=== PATIENT | female | born 1975 | race Caucasian/White ===

== ENCOUNTER 2018-06-26 20:45 | Emergency (ER) | payer BC, OTHER ==
--- NOTE | 2018-06-26 21:10 | ER Document Report ---
ED General - General Chief Complaint: Dizziness Stated Complaint: DIZZINESS Time Seen by Provider: 06/26/18 20:57 Notes: Patient is a 43-year-old female that comes emergency department for chief complaint of feeling generally weak, tired, and prior to arrival she states she had an episode where she felt like she was having palpitations, she became lightheaded, her vision became slightly blurry. She states she did not pass out. She denies getting a headache, having chest pain, having shortness of breath, and denies nausea or vomiting. She denies fever or chills. She is visiting her daughter, she is from out of town. Past medical history includes pacemaker (for history of Mobitz type II block, bradycardia and tachycardia), on diltiazem, also is medicated for hypothyroidism, recently had normal thyroid levels reportedly. At bedside she denies any current complaints other than generally feeling somewhat weak and tired. TRAVEL OUTSIDE OF THE [place] IN LAST 30 DAYS: No - Related Data Allergies/Adverse Reactions: No Known Allergies Allergy (Verified 06/26/18 21:47) Past Medical History - General Information source: Patient - Social History Smoking Status: Never Smoker Frequency of alcohol use: None Drug Abuse: None Lives with: Family Family History: Reviewed & Not Pertinent - Past Medical History Cardiac Medical History: Reports: Other - Pacemaker placement in [place] Endocrine Medical History: Reports: Hx Hypothyroidism Past Surgical History: Reports: Other - Pacemaker placement - Immunizations Immunizations up to date: Yes Hx Diphtheria, Pertussis, Tetanus Vaccination: Yes Review of Systems - Review of Systems Constitutional: No symptoms reported EENT: No symptoms reported Cardiovascular: See HPI Respiratory: No symptoms reported Gastrointestinal: No symptoms reported Genitourinary: No symptoms reported Female Genitourinary: No symptoms reported Musculoskeletal: No symptoms reported Skin: No symptoms reported Hematologic/Lymphatic: No symptoms reported Neurological/Psychological: See HPI Physical Exam - Vital signs Vitals: Temp Pulse Resp BP Pulse Ox 98.1 F 80 20 141/88 H 98 06/26/18 20:51 06/26/18 20:51 06/26/18 20:51 06/26/18 20:51 06/26/18 20:51 - Notes Notes: GENERAL: Alert, interacts well. No acute distress. HEAD: Normocephalic, atraumatic. EYES: Pupils equal, round, and reactive to light. Extraocular movements intact. ENT: Oral mucosa moist, tongue midline. Oropharynx unremarkable. Airway patent. Nares patent, no nasal septal hematoma, TM's intact. NECK: Full range of motion. Supple. Trachea midline. LUNGS: Clear to auscultation bilaterally, no wheezes, rales, or rhonchi. No respiratory distress. HEART: Regular rate and rhythm. No murmur ABDOMEN: Soft, non-tender. Non-distended. Bowel sounds present in all 4 q uadrants. GENITOURINARY: Deferred EXTREMITIES: Moves all 4 extremities spontaneously. No edema, normal radial and dorsalis pedis pulses bilaterally. No cyanosis. BACK: no cervical, thoracic, lumbar midline tenderness. No saddle anesthesia, normal distal neurovascular exam. NEUROLOGICAL: Alert and oriented x3. Normal speech. [cranial nerves II through XII grossly intact]. PSYCH: Normal affect, normal mood. SKIN: Warm, dry, normal turgor. No rashes or lesions noted. Course - Re-evaluation Re-evalutation: Patient is well-appearing on my evaluation. She has occasional PVCs on the monitor, she has a pacemaker. She is not hypotensive, tachycardic, febrile, and she is well-appearing. Physical exam is unremarkable. EKG sinus sinus rhythm with no T wave inversions or ST segment changes in consecutive leads, borderline T waves inferiorly but no significant DE interval is unremarkable, QTC is 376. No comparison available. CBC unremarkable with no anemia or leukocytosis. Chemistry unremarkable. Troponin is negative. Chest x-ray is normal. Urinalysis shows borderline dehydration, some contamination, nonspecific. I reevaluated the patient. She has a [employer] pacemaker, recommended that we interrogate the device to make sure she did not have a dangerous arrhythmia, patient states she is very willing to do this, she is going to wait for the [employer] to reach this location and perform, however after interrogation she requests to leave. She did have some traveling a few weeks ago, however she has no lower extremity swelling, shortness of breath, chest pain, smoking history, history of blood clots, family history of blood clots. I did discuss evaluation for this additionally but this was declined. I feel this is reasonable based on her presentation. Pacemaker was interrogated, pacemaker was switched by the [employer] from fixed to variable to reduce her palpitations. Per her report she has had no pacing that was needed to be initiated, she had no arrhythmias or concerning abnormality's. I discussed this with patient, provided her with details, she states satisfaction and understanding of this. Second troponin is negative. 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 Patient states understanding and agreement with plan. - Vital Signs Vital signs: Temp Pulse Resp BP Pulse Ox 98.1 F 80 19 117/78 97 06/26/18 20:51 06/26/18 20:51 06/27/18 00:31 06/27/18 00:31 06/27/18 00:31 - Laboratory Result Diagrams: 06/26/18 21:08 06/26/18 21:08 Laboratory results interpreted by me: 06/26/18 06/26/18 21:08 21:55 RDW 14.5 H Ur Leukocyte Esterase MODERATE H Discharge - Discharge Clinical Impression: Palpitations, Lightheadedness Condition: Stable Disposition: HOME, SELF-CARE Additional Instructions: Your workup today does not show any concerning abnormalities. Please follow-up with your provider with your report for additional evaluation and management. Your pacemaker has been adjusted from fixed to variable, it is possible that you do not feel the palpitations anymore as a result. Return for any concerning symptoms including passing out, chest pain, difficulty breathing, or any other concerning symptoms. Syncope (fainting or near-fainting) can occur from many different health problems. Or it can be a simple fainting spell requiring no treatment. It is safe for you to go home, but further evaluation will likely be necessary. Your work-up may include tests for internal bleeding, heart disease, medication problems, etc. Tests are not always required, however, depending on the nature of your problem. The warning signs of an impending faint include: dizziness, lightheadedness, nausea, hot flashes, tingling, and weakness. If this happens, lay down and put your feet up, then wait until all of these symptoms have passed before standing up again. If these episodes become recurrent, or if you develop chest pain, heart palpitations, mental confusion, blurred vision, or headache, then you should call the physician, or go to the emergency room.
[2018-06-26 21:33] LABS: ABSOLUTE EOSINOPHILS # (AUTO) 0.1 10^3/uL (0.0-0.6); ABSOLUTE MONOCYTES (AUTO) 0.5 10^3/uL (0.1-1.4); ABSOLUTE NEUT (AUTO) 3.3 10^3/uL (1.7-8.2); BASOPHILS % (AUTO) 0.6 % (0-2); EOSINOPHILS % (AUTO) 1.7 % (0-6); HEMATOCRIT 38.2 % (36.0-47.0); HEMOGLOBIN 12.9 g/dL (12.0-15.5); MEAN CORPUSCULAR HEMOGLOBIN 29.5 pg (27.0-33.4); MEAN CORPUSCULAR HGB CONC 33.8 g/dL (32.0-36.0); MEAN CORPUSCULAR VOLUME 87 fl (80-97); MONOCYTES % (AUTO) 7.8 % (3-13); PLATELET COUNT 218 10^3/uL (150-450); RED BLOOD COUNT 4.38 10^6/uL (3.72-5.28); RED CELL DISTRIBUTION WIDTH 14.5 % (11.5-14.0); SEGMENTED NEUTROPHILS % (AUTO) 55.9 % (42-78); TOTAL CELLS COUNTED % (AUTO) 100 %; WHITE BLOOD COUNT 5.9 10^3/uL (4.0-10.5)
[2018-06-26 21:52] LABS: ANION GAP 7 (5-19); BLOOD UREA NITROGEN 12 mg/dL (7-20); CALCIUM 9.1 mg/dL (8.4-10.2); CARBON DIOXIDE 26 mmol/L (22-30); CHLORIDE 106 mmol/L (98-107); GLUCOSE 96 mg/dL (75-110); POTASSIUM 4.3 mmol/L (3.6-5.0)
[2018-06-26 22:20] LABS: APPEARANCE,URINE SLIGHTLY-CLOUDY; BILIRUBIN,URINE NEGATIVE (NEGATIVE); COLOR,URINE YELLOW; GLUCOSE, URINE NEGATIVE (NEGATIVE); KETONES,URINE NEGATIVE (NEGATIVE); LEUKOCYTE ESTERASE,URINE MODERATE (NEGATIVE); NITRITE,URINE NEGATIVE (NEGATIVE); PROTEIN,URINE NEGATIVE (NEGATIVE); URINE SPECIFIC GRAVITY 1.021; UROBILINOGEN,URINE NEGATIVE mg/dL (<2.0)
--- NOTE | 2018-06-26 22:29 | RADIOLOGY REPORT (SQ) ---
XR CHEST 1 VIEW HISTORY: Palpitations, near syncopal episode. COMPARISON: None. FINDINGS: The heart size is normal. The lungs are clear. No pleural effusions or pneumothorax is seen. No acute bony findings. There is a dual lead left chest wall pacemaker. IMPRESSION: No evidence of acute cardiopulmonary disease.
[2018-06-27 00:53] VITALS: BP 117/78
--- NOTE | 2018-06-27 22:49 | EKG REPORT ---
SEVERITY:- ABNORMAL ECG - SINUS RHYTHM NONSPECIFIC T ABNORMALITIES, INFERIOR LEADS : Confirmed by: Vonnie Santos 27-Jun-2018 22:49:04
== END 2018-06-27 00:52 | disposition home or self-care (01) ==
LOC: ER 20:45
DX: R42 Dizziness and giddiness (principal); I49.3 Ventricular premature depolarization; R00.2 Palpitations; R53.1 Weakness; R53.83 Other fatigue; H53.8 Other visual disturbances; I44.1 Atrioventricular block, second degree; R00.0 Tachycardia, unspecified; E03.9 Hypothyroidism, unspecified; Z95.0 Presence of cardiac pacemaker; Z79.899 Other long term (current) drug therapy
CPT/HCPCS: 36415; 71045; 80048; 81001; 81025; 84484; 85025; 93005; 93010; 99285